=== PATIENT | female | born 1985 | race Caucasian/White ===

== ENCOUNTER → 2018-06-14 | Outpatient (CLI) | payer OTHER ==
--- NOTE | 2018-06-14 23:27 | RAD ---
Examination: Ultrasound pelvis HISTORY: History of left lower pelvic pain COMPARISON: None available. FINDINGS: The uterus measures 7.2 x 5.2 x 3.0 cm. Small amount of simple fluid identified in the cul-de-sac. The right ovary measures 2.1 x 2.0 x 1.9 cm. Left ovary measures 2.7 x 1.7 x 1.6 cm. Blood flow identified in the right and left ovaries. Examination is limited due to patient body habitus. The endometrium measures 8.8 mm in thickness. Few nabothian cysts identified in the cervix. IMPRESSION: Unremarkable visualized exam however examination is limited due to patient body habitus. Electronically signed by: Sumeet Siu MD (06/14/2018 3:21 PM) [place] [id number]
== END | disposition home or self-care (01) ==
LOC: US 13:59
PROVIDERS: ATTEND Nurse Practitioner Family
DX: N88.8 Other specified noninflammatory disorders of cervix uteri (principal); E28.2 Polycystic ovarian syndrome; N93.8 Other specified abnormal uterine and vaginal bleeding
CPT/HCPCS: 76830; 76856

== ENCOUNTER 2019-04-13 13:37 | Emergency (ER) | payer OTHER ==
[~2019-04-13] VITALS: Ht 160 cm; Wt 139.2 kg
--- NOTE | 2019-04-13 14:11 | PHYS DOC ---
Past History Past Medical History: Depression, IBS Past Surgical History: , Hysterectomy Smoking: Quit Greater Than 1 Year Alcohol Use: None Drug Use: None Adult General Chief Complaint Chief Complaint: MULTIPLE COMPLAINTS [facility] Patient is a 33-year-old female who presents to the emergency department for evaluation. She states that overnight she just began not feeling well, and she states that she was off balance yesterday, and dizzy. She denies any injuries. She did have "a migraine" earlier in the day, but denies currently having a headache. She did not have any vision changes or speech difficulties. She reports feeling a tightness in a tingling sensation in her left arm throughout the day since awakening this morning, and states her brother, who is an EMT, checked her blood pressure this morning and was 160 systolic. The patient denies having any chest pain or shortness of breath, or focal weakness. She has not had any nausea, vomiting, or diarrhea. There are no alleviating or exacerbating factors to her symptoms. She reports feeling a pulsatile sound in her ear, as if she could hear her heartbeat. Review of Systems Review of Systems Constitutional: Denies fever or chills [] Eyes: Denies change in visual acuity, redness, or eye pain [] HENT: Denies nasal congestion or sore throat [] Respiratory: Denies cough or shortness of breath [] Cardiovascular: No additional information not addressed in HPI [] GI: Denies abdominal pain, nausea, vomiting, bloody stools or diarrhea [] : Denies dysuria or hematuria [] Musculoskeletal: Denies back pain or joint pain [] Integument: Denies rash or skin lesions [] Neurologic: No additional information not addressed in HPI [] Endocrine: Denies polyuria or polydipsia [] All other systems were reviewed and found to be within normal limits, except as documented in this note. Allergies Allergies Allergies Coded Allergies Type Severity Reaction Last Updated Verified doxycycline Allergy Unknown Swelling 04/13/19 Yes Physical Exam Physical Exam PHYSICAL EXAM: CONSTITUTIONAL: Well developed, well nourished HEAD: normocephalic, atraumatic EENT: PERRL, EOMI. Conjunctivae normal color, sclerae non-icteric; moist mucous membranes. NECK: Supple, non-tender; no meningismus. There are no carotid bruits. LUNGS: Lungs CTA, breathing even and unlabored. Normal air movement. HEART: Regular rate and rhythm, no murmur CHEST: No deformity; non-tender ABDOMEN: The abdomen is soft, and non-tender, no masses or bruits. EXTREM: Normal ROM; no deformity, no calf tenderness. Normal pulses palpable in all extremities. There is no pedal edema. SKIN: No rash; no diaphoresis NEURO: Alert; normal speech and cognition; CN's grossly intact; strength grossly intact without focal deficit. Sensation is grossly intact. [id number] and heel maria testing is normal. Romberg test is normal. Visual uriostegui are intact by confrontation. NIH stroke scale score is 0. BACK: No CVA TTP. Current Patient Data Vital Signs Vital Signs Date Time Temp Pulse Resp B/P (MAP) Pulse Ox O2 Delivery O2 Flow Rate FiO2 04/13/19 13:40 98.5 99 24 100 Room Air Lab Results Laboratory Tests Test 04/13/19 14:05 White Blood Count 10.0 x10^3/uL Red Blood Count 4.83 x10^6/uL Hemoglobin 13.7 g/dL Hematocrit 41.3 % Mean Corpuscular Volume 86 fL Mean Corpuscular Hemoglobin 28 pg Mean Corpuscular Hemoglobin Concent 33 g/dL Red Cell Distribution Width 13.5 % Platelet Count 294 x10^3/uL Neutrophils (%) (Auto) 66 % Lymphocytes (%) (Auto) 26 % Monocytes (%) (Auto) 7 % Eosinophils (%) (Auto) 1 % Basophils (%) (Auto) 1 % Neutrophils # (Auto) 6.6 x10^3uL Lymphocytes # (Auto) 2.6 x10^3/uL Monocytes # (Auto) 0.7 x10^3/uL Eosinophils # (Auto) 0.1 x10^3/uL Basophils # (Auto) 0.1 x10^3/uL Prothrombin Time < 9.3 SEC Prothromb Time International Ratio 0.9 Activated Partial Thromboplast Time 28 SEC Sodium Level 143 mmol/L Potassium Level 3.8 mmol/L Chloride Level 109 mmol/L Carbon Dioxide Level 24 mmol/L Anion Gap 10 Blood Urea Nitrogen 5 mg/dL Creatinine 0.6 mg/dL Estimated GFR (Cockcroft-Gault) 115.9 BUN/Creatinine Ratio 8 Glucose Level 96 mg/dL Calcium Level 8.5 mg/dL Magnesium Level 2.0 mg/dL Total Bilirubin 0.1 mg/dL Aspartate Amino Transf (AST/SGOT) 14 U/L Alanine Aminotransferase (ALT/SGPT) 26 U/L Alkaline Phosphatase 105 U/L [id number]-Aje-C-Type Natriuretic Peptide 35 pg/mL Total Protein 7.0 g/dL Albumin 3.2 g/dL Albumin/Globulin Ratio 0.8 Current Medications Medications (Trade) Dose Ordered Sig/Joby Route PRN Reason Start Time Stop Time Status Last Admin Dose Admin Iohexol (Omnipaque 350 Mg/ml) 100 ml 1X ONCE IV 04/13/19 14:15 04/13/19 14:17 DC 04/13/19 14:36 EKG EKG Normal sinus rhythm with a normal rate, normal axis, normal intervals, there are no acute ischemic ST/T changes.[] Radiology/Procedures Radiology/Procedures PROCEDURE: PORTABLE CHEST 1V PORTABLE CHEST 1V Clinical indications: Dizziness. COMPARISON: None available. Findings: No acute lung infiltrate or pleural effusion or pulmonary edema or lung mass or pneumothorax is seen. The heart size, pulmonary vasculature, mediastinum and both tr are unremarkable. Impression: No acute radiographic abnormality is seen. [] PROCEDURE: CT HEAD WO CONTRAST Axial CT images of the head were obtained without IV contrast. Comparison: None. Indication: Dizziness, off balance and left-sided paresthesias. Findings: No mass effect or hemorrhage is seen. The ventricles are not enlarged or effaced. No midline shift is noted. There is no intra or extra axial fluid collection. No bony or soft tissue abnormality is seen. The visualized paranasal sinuses are clear. Impression: 1. No acute intracranial process seen on non- contrast head CT. PROCEDURE: CT ANGIOGRAPHY HEAD AND NECK Head and neck CTA with and without contrast and 3-D reconstruction: Clinical indications: Left-sided paresthesias. Imbalance. Technique: An appropriate noncontrast axial localizer was identified in the neck and used as the region of interest during contrast injection. Following IV infusion of 100 cc of Omnipaque 350, helical CT scanning of the neck and head was performed. Axial and coronal and sagittal 2-D MIP reconstructions were generated and reviewed on a computer monitor. Using a MIP algorithm, a 3-D reconstructed angiogram was generated and reviewed on a computer monitor. PQRS compliance Statement One or more of the following individualized dose reduction techniques were utilized for this study: 1. Automated exposure control 2. Adjustment of the mA and/or kV according to patient size 3. Use of iterative reconstruction technique The measurements were performed using the NASCET criteria. Neck CTA Findings: No occlusive disease is seen. No significant stenosis is evident. The vertebral arteries are codominant in size. No soft tissue mass or enlarged cervical lymphadenopathy is seen. Head CTA Findings: No aneurysm is seen involving the [place] of Small. No occlusive disease or significant stenosis is seen. No thromboembolism is identified. No arteriovenous malformation is evident. No intracranial contrast enhancing lesion is seen. The dural venous sinuses are patent. Impression: No significant abnormality. Course & Med Decision Making Course & Med Decision Making Pertinent Labs and Imaging studies reviewed. (See chart for details) []3:30 PM: The patient's condition remains stable. I discussed test results with the patient. I discussed the inability to definitively rule out a stroke without an MRI, although clinical suspicion is low, and I discussed transfer to another facility that would have MRI capability for further observation, but the patient declined, expressing understanding of the limitation of the evaluation she received in this emergency Department. She would prefer to follow up as an outpatient, I discussed expectant management, the need for close PCP follow-up for further blood pressure evaluation, and return precautions in detail. Patient was not noted to have significant blood pressure abnormalities during her stay in the ER and I discussed further outpatient evaluation of her blood pressure with her PCP. Dragon Disclaimer Dragon Disclaimer This electronic medical record was generated, in whole or in part, using a voice recognition dictation system. Departure Departure: Impression: Primary Impression: Dizziness Disposition: 01 HOME, SELF-CARE Condition: STABLE Referrals: ALBAN OVALLE (PCP) Patient Instructions: Dizziness, Hypertension, Paresthesia RICK MCPHERSON MD Apr 13, 2019 14:11
[2019-04-13] MEDS ORDERED: IOHEXOL 350 MG/ML 100 ML VIAL. IV ONE (14:15)
[2019-04-13 14:21] LABS: BASO # 0.1 x10^3/uL (0.0-0.2); BASO % 1 % (0-3); EOS # 0.1 x10^3/uL (0.0-0.7); EOS % 1 % (0-3); HEMATOCRIT 41.3 % (36.0-47.0); HEMOGLOBIN 13.7 g/dL (12.0-15.5); LYMPH # 2.6 x10^3/uL (1.0-4.8); LYMPH % 26 % (24-48); MEAN CORPUSCULAR HEMOGLOBIN 28 pg (25-35); MEAN CORPUSCULAR HGB CONC 33 g/dL (31-37); MEAN CORPUSCULAR VOLUME 86 fL (79-100); MONO # 0.7 x10^3/uL (0.0-1.1); MONO % 7 % (0-9); NEUT # 6.6 x10^3uL (1.8-7.7); NEUT % 66 % (31-73); PLATELET COUNT 294 x10^3/uL (140-400); RED BLOOD COUNT 4.83 x10^6/uL (3.50-5.40); RED CELL DISTRIBUTION WIDTH 13.5 % (11.5-14.5)
[2019-04-13 14:42] LABS: ALBUMIN 3.2 g/dL (3.4-5.0); ALBUMIN/GLOBULIN RATIO 0.8 (1.0-1.7); CALCIUM 8.5 mg/dL (8.5-10.1); CREATININE 0.6 mg/dL (0.6-1.0); GFR 115.9; POTASSIUM 3.8 mmol/L (3.5-5.1); TOTAL BILIRUBIN 0.1 mg/dL (0.2-1.0)
--- NOTE | 2019-04-13 14:45 | RAD ---
Axial CT images of the head were obtained without IV contrast. Comparison: None. Indication: Dizziness, off balance and left-sided paresthesias. Findings: No mass effect or hemorrhage is seen. The ventricles are not enlarged or effaced. No midline shift is noted. There is no intra or extra axial fluid collection. No bony or soft tissue abnormality is seen. The visualized paranasal sinuses are clear. Impression: 1. No acute intracranial process seen on non- contrast head CT. Exposure: One or more of the following individualized dose reduction techniques were utilized for this examination: 1. Automated exposure control 2. Adjustment of the mA and/or kV according to patient size 3. Use of iterative reconstruction technique Electronically signed by: Terry Wang MD (04/13/2019 2:42 PM) [id number]
--- NOTE | 2019-04-13 14:48 | RAD ---
PORTABLE CHEST 1V Clinical indications: Dizziness. COMPARISON: None available. Findings: No acute lung infiltrate or pleural effusion or pulmonary edema or lung mass or pneumothorax is seen. The heart size, pulmonary vasculature, mediastinum and both tr are unremarkable. Impression: No acute radiographic abnormality is seen. Electronically signed by: Peewee Molina MD (04/13/2019 2:45 PM) [facility]
--- NOTE | 2019-04-13 15:18 | RAD ---
Head and neck CTA with and without contrast and 3-D reconstruction: Clinical indications: Left-sided paresthesias. Imbalance. Technique: An appropriate noncontrast axial localizer was identified in the neck and used as the region of interest during contrast injection. Following IV infusion of 100 cc of Omnipaque 350, helical CT scanning of the neck and head was performed. Axial and coronal and sagittal 2-D MIP reconstructions were generated and reviewed on a computer monitor. Using a MIP algorithm, a 3-D reconstructed angiogram was generated and reviewed on a computer monitor. PQRS compliance Statement One or more of the following individualized dose reduction techniques were utilized for this study: 1. Automated exposure control 2. Adjustment of the mA and/or kV according to patient size 3. Use of iterative reconstruction technique The measurements were performed using the NASCET criteria. Neck CTA Findings: No occlusive disease is seen. No significant stenosis is evident. The vertebral arteries are codominant in size. No soft tissue mass or enlarged cervical lymphadenopathy is seen. Head CTA Findings: No aneurysm is seen involving the lummi of Small. No occlusive disease or significant stenosis is seen. No thromboembolism is identified. No arteriovenous malformation is evident. No intracranial contrast enhancing lesion is seen. The dural venous sinuses are patent. Impression: No significant abnormality. Electronically signed by: Peewee Molina MD (04/13/2019 3:16 PM) [facility]
[2019-04-13 15:40] VITALS: BP 120/65
== END 2019-04-13 15:46 | disposition home or self-care (01) ==
LOC: ER 13:37
DX: R42 Dizziness and giddiness (principal); R20.2 Paresthesia of skin; F32.9 Major depressive disorder, single episode, unspecified; K58.9 Irritable bowel syndrome, unspecified; G43.909 Migraine, unspecified, not intractable, without status migrainosus; Z87.891 Personal history of nicotine dependence; Z88.1 Allergy status to other antibiotic agents
CPT/HCPCS: 36415; 70450; 70496; 70498; 71045; 80053; 83735; 83880; 85025; 85610; 85730; 99285; Q9967

== ENCOUNTER 2019-08-24 11:05 | Emergency (ER) | payer OTHER ==
[~2019-08-24] VITALS: Ht 160 cm; Wt 139.2 kg
[2019-08-24 11:14] VITALS: BP 124/64
--- NOTE | 2019-08-24 11:53 | RAD ---
EXAM: Chest, single view. HISTORY: Shortness of breath. Cough. COMPARISON: 04/13/2019 FINDINGS: A frontal view of the chest is obtained. There is no infiltrate, pleural effusion or pneumothorax. The heart is normal in size. IMPRESSION: No acute pulmonary finding. Electronically signed by: Janette Steel MD (08/24/2019 11:50 AM) [facility]
[2019-08-24 12:04] LABS: BASO % 0 % (0-3); EOS # 0.1 x10^3/uL (0.0-0.7); EOS % 1 % (0-3); HEMATOCRIT 43.2 % (36.0-47.0); HEMOGLOBIN 14.5 g/dL (12.0-15.5); LYMPH # 1.8 x10^3/uL (1.0-4.8); LYMPH % 24 % (24-48); MEAN CORPUSCULAR HEMOGLOBIN 28 pg (25-35); MEAN CORPUSCULAR HGB CONC 34 g/dL (31-37); MEAN CORPUSCULAR VOLUME 85 fL (79-100); MONO # 0.4 x10^3/uL (0.0-1.1); MONO % 6 % (0-9); NEUT # 5.2 x10^3uL (1.8-7.7); NEUT % 69 % (31-73); PLATELET COUNT 330 x10^3/uL (140-400); RED BLOOD COUNT 5.11 x10^6/uL (3.50-5.40); RED CELL DISTRIBUTION WIDTH 14.1 % (11.5-14.5); WHITE BLOOD COUNT 7.6 x10^3/uL (4.0-11.0)
[2019-08-24 12:09] LABS: CALCIUM 9.1 mg/dL (8.5-10.1); CREATININE 0.7 mg/dL (0.6-1.0); POTASSIUM 3.9 mmol/L (3.5-5.1)
[2019-08-24 12:16] LABS: ALBUMIN 3.4 g/dL (3.4-5.0); ALBUMIN/GLOBULIN RATIO 0.9 (1.0-1.7); C REACTIVE PROTEIN 7.9 mg/L (0-3.3); TOTAL BILIRUBIN 0.2 mg/dL (0.2-1.0); TOTAL PROTEIN 7.2 g/dL (6.4-8.2)
[2019-08-24] MEDS ORDERED: GUAI120L35 PO (12:38)
[2019-08-24] MEDS ORDERED: BENZ100C PO (12:38)
--- NOTE | 2019-08-24 12:39 | PHYS DOC ---
Past History Past Medical History: Depression, IBS Past Surgical History: , Hysterectomy Smoking: Quit Greater Than 1 Year Alcohol Use: None Drug Use: None Adult General Chief Complaint Chief Complaint: COUGH HPI HPI Patient is a 33 year old female who presents with cough, body aches, headache that started yesterday. These have progressively gotten worse over time. 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 She states that she is developed some shortness of breath due to coughing over the last few hours. She called the health department who sent her here for possible coronavirus. She denies any other medical problems. She continues to be able to move around her home without significant shortness of breath. Review of Systems Review of Systems General: Denies fever, chills, sweats.reports fatigue Eyes: Denies drainage, blurred vision HENT: Denies rhinorrhea, sore throat Respiratory: Reports cough, shortness of breath, wheezing Cardiac: Denies edema, palpitations, chest pain GI: Denies abdominal pain, N/V MSK: Denies back pain, neck pain Skin: Denies rash, jaundice Neuro: Denies dizziness reports headache Psychiatric: Denies SI/HI All other systems were reviewed and found to be within normal limits, except as documented in this note. Allergies Allergies Allergies Coded Allergies Type Severity Reaction Last Updated Verified doxycycline Allergy Unknown Swelling 04/13/19 Yes Physical Exam Physical Exam Constitutional: Well developed, well nourished, Cooperative, NAD, ill appearing, coughing HEENT: Normocephalic, atraumatic, oropharynx moist, EOMI, PERRL, no drainage from eyes, normal conjunctiva Neck: Supple, normal range of motion, no stridor Cardiovascular: RRR, 2+ radial pulses bilaterally, no edema Respiratory: CTA bilaterally, no respiratory distress, no wheezing/crackles, decreased breath sounds bilaterally Abdomen: Soft, nontender, nondistended, no masses Skin: Warm, dry, intact Extremities: No obvious deformities Neurologic: Alert and Oriented x3, motor and sensory function grossly normal, no focal deficits Psychologic: Normal affect, normal judgment, normal mood. No SI/HI Current Patient Data Vital Signs Vital Signs Date Time Temp Pulse Resp B/P (MAP) Pulse Ox O2 Delivery O2 Flow Rate FiO2 08/24/19 11:14 98.3 99 22 124/64 (84) 98 Room Air Lab Results Laboratory Tests Test 08/24/19 11:35 White Blood Count 7.6 x10^3/uL (4.0-11.0) Red Blood Count 5.11 x10^6/uL (3.50-5.40) Hemoglobin 14.5 g/dL (12.0-15.5) Hematocrit 43.2 % (36.0-47.0) Mean Corpuscular Volume 85 fL (79-100) Mean Corpuscular Hemoglobin 28 pg (25-35) Mean Corpuscular Hemoglobin Concent 34 g/dL (31-37) Red Cell Distribution Width 14.1 % (11.5-14.5) Platelet Count 330 x10^3/uL (140-400) Neutrophils (%) (Auto) 69 % (31-73) Lymphocytes (%) (Auto) 24 % (24-48) Monocytes (%) (Auto) 6 % (0-9) Eosinophils (%) (Auto) 1 % (0-3) Basophils (%) (Auto) 0 % (0-3) Neutrophils # (Auto) 5.2 x10^3uL (1.8-7.7) Lymphocytes # (Auto) 1.8 x10^3/uL (1.0-4.8) Monocytes # (Auto) 0.4 x10^3/uL (0.0-1.1) Eosinophils # (Auto) 0.1 x10^3/uL (0.0-0.7) Basophils # (Auto) 0.0 x10^3/uL (0.0-0.2) Sodium Level 141 mmol/L (136-145) Potassium Level 3.9 mmol/L (3.5-5.1) Chloride Level 108 mmol/L (98-107) H Carbon Dioxide Level 23 mmol/L (21-32) Anion Gap 10 (6-14) Blood Urea Nitrogen 8 mg/dL (7-20) Creatinine 0.7 mg/dL (0.6-1.0) Estimated GFR (Cockcroft-Gault) 97.0 BUN/Creatinine Ratio 11 (6-20) Glucose Level 98 mg/dL (70-99) Calcium Level 9.1 mg/dL (8.5-10.1) Total Bilirubin 0.2 mg/dL (0.2-1.0) Aspartate Amino Transferase (AST) 13 U/L (15-37) L Alanine Aminotransferase (ALT) 18 U/L (14-59) Alkaline Phosphatase 105 U/L (46-116) Lactate Dehydrogenase 125 U/L (81-234) Creatine Kinase 44 U/L (26-192) Troponin I Quantitative < 0.017 ng/mL (0-0.055) C-Reactive Protein 7.9 mg/L (0-3.3) H Total Protein 7.2 g/dL (6.4-8.2) Albumin 3.4 g/dL (3.4-5.0) Albumin/Globulin Ratio 0.9 (1.0-1.7) L EKG EKG [] Radiology/Procedures Radiology/Procedures Chest x-ray normal [] Course & Med Decision Making Course & Med Decision Making Pertinent Labs and Imaging studies reviewed. (See chart for details) Patient is a 33-year-old female who presents to the emergency room with cough, body aches, fever. At this time there is concern for the novel coronavirus 19. Risk stratifying work-up was ordered including chest x-ray, d-dimer, CPK, CRP, LDH, troponin, ferritin, CBC, CMP. Due to concern of COVID-19 I have discussed the importance of quarantining with the patient. I have discussed with them that they should avoid grocery stores, gas stations, pharmacies, work, friends/family's homes. I discussed with him that it is important that they do not expose themselves to anyone else for the next 14 days. Chest x-ray does not show infiltrates at this time and patient will not be treated with empiric antibiotics. I have discussed with the patient the course of the illness and we have discussed strict return precautions. At this time patient does not need admission as they are stable, however it is possible that they may get worse over the next few days and we have discussed the importance of coming back if they develop severe shortness of breath or any other symptoms that they are co ncerned about. Patient's test results and vitals while in the ED were fully reviewed and discussed with the patient. Patient is stable and at this time does not need admission to the hospital. We have discussed strict return precautions and the importance of following up with their Primary Care Physician. Patient stated understanding and was given an opportunity to ask any questions. Charmaine Disclaimer Dragon Disclaimer This electronic medical record was generated, in whole or in part, using a voice recognition dictation system. Departure Departure: Impression: Primary Impression: 2019 novel coronavirus disease (COVID-19) Disposition: HOME, SELF-CARE Condition: STABLE Referrals: ALBAN OVALLE (PCP) Scripts Guaifenesin/Codeine Phosphate (Codeine-Guaifen 10-100 mg/5 ml) 120 Ml Liquid 5 ML PO PRN Q6HRS PRN for cough and congestion MDD 20 Milliliter(s) for 6 Days, #120 ML 0 Refills Prov: VERA CODY MD 08/24/19 Benzonatate (TESSALON PERLE) 100 Mg Capsule 1 CAP PO TID PRN for COUGH, #21 CAP Prov: VERA CODY MD 08/24/19 VERA CODY MD Aug 24, 2019 12:39
== END 2019-08-24 13:00 | disposition home or self-care (01) ==
LOC: ER 11:05
DX: U07.1 COVID-19 (principal); R06.02 Shortness of breath; K58.9 Irritable bowel syndrome, unspecified; Z87.891 Personal history of nicotine dependence; Z88.1 Allergy status to other antibiotic agents
CPT/HCPCS: 36415; 71045; 80053; 82550; 82728; 83615; 84484; 85025; 85379; 85610; 85730; 86140; 99284

== ENCOUNTER 2020-07-06 19:13 | Emergency (ER) | payer OTHER ==
[~2020-07-06] VITALS: Ht 160 cm; Wt 155.3 kg
[~2020-07-06 19:13] MED LIST: BENZ100C PO; GUAI120L35 PO
[2020-07-06 19:41] VITALS: BP 154/113
--- NOTE | 2020-07-06 19:45 | PHYS DOC ---
Past History Past Medical History: Depression, Endometriosis, IBS, Ovarian Cyst Past Surgical History: , Hysterectomy Smoking: Quit Greater Than 1 Year Alcohol Use: None Drug Use: None General Adult EDM: Chief Complaint: ABDOMINAL PAIN HPI: HPI: ".. I came in because having a lot of abdomen discomfort.. just not feeling right since about 0900 this morning.."..I usually follow with Dr. Shanta Ovalle. but I was hurting so bad.. I decided to come.. in... " Patient is a 34 year old FEMALE who presents with above hx and complaints generalized abdomen pain. Patient denies any fever or chills. Patient denies any intake of bad food. No history of travel. No history of specific ill contacts. Has had previous abdomen surgeries hysterectomy, C-sections x2. Treatment endometriosis, ovarian cyst. Last colonoscopy was normal 2 years ago. Patient denies any trauma. Review of Systems: Review of Systems: Constitutional: Denies fever or chills Eyes: Denies change in visual acuity HENT: Denies nasal congestion or sore throat Respiratory: Denies cough or shortness of breath Cardiovascular: Denies chest pain or edema GI: Complains of generalized abdominal pain, nausea,. Denies vomiting, bloody stools or diarrhea : Denies dysuria Musculoskeletal: Denies back pain or joint pain Integument: Denies rash Neurologic: Denies headache, focal weakness or sensory changes Endocrine: Denies polyuria or polydipsia Lymphatic: Denies swollen glands Psychiatric: Denies depression or anxiety Family History: Family History: Noncontributory to presentation Current Medications: Current Meds: See nursing for home meds. Allergies: Allergies: Allergies Coded Allergies Type Severity Reaction Last Updated Verified doxycycline Allergy Unknown Swelling 04/13/19 Yes Physical Exam: PE: Constitutional: Moderate acute distress, non-toxic appearance. [] HENT: Normocephalic, atraumatic, bilateral external ears normal, oropharynx moist, no oral exudates, nose normal. [] Eyes: PERRLA, EOMI, conjunctiva normal, no discharge. [] Neck: Normal range of motion, no tenderness, supple, no stridor. [] Cardiovascular: Tachycardia heart rate regular rhythm, no murmur [] Lungs & Thorax: Bilateral breath sounds equal apex on auscultation [] Abdomen: Bowel sounds hyperactive, soft, generalized tenderness, no masses, no pulsatile masses. [] Some rebound to the right mid abdomen. Old surgery scars Skin: Warm, dry, no erythema, no rash. [] Back: No tenderness, some mild right flank CVA tenderness. [] Extremities: No tenderness, no cyanosis, no clubbing, ROM intact, no edema. No Trousseau sign. Neurologic: Alert and oriented X 3, normal motor function, normal sensory function, no focal deficits noted. [] Psychologic: Affect anxious., judgement normal, mood normal. [] EKG: EKG: My interpretation of EKG shows sinus tachycardia 112 bpm. No acute morphology other than tachycardia. [] Radiology/Procedures: Radiology/Procedures: [[place] [address] IMAGING REPORT Signed PATIENT: LENARD MONTANA ACCOUNT: [id number] : 1985 LOCATION: ER AGE: 34 SEX: F EXAM STATUS: REG ER ORD. PHYSICIAN: CARRIE DELATORRE MD REASON: RLQ pain, OMNI 300, 75ml & OMNI 240, 30ml PROCEDURE: CT ABD PELV W/ORAL&IV CONTRAST EXAM: CT ABDOMEN/PELVIS WITH CONTRAST. HISTORY: Right lower quadrant pain. TECHNIQUE: Computed tomography of the abdomen and pelvis was performed after the intravenous administration of iodinated contrast. One or more of the following individualized dose reduction techniques were utilized for this examination: 1. Automated exposure control. 2. Adjustment of the mA and/or kV according to patient size. 3. Use of iterative reconstruction technique. COMPARISON: None. FINDINGS: Lung windows through the visualized portions of the bases reveal no abnormality. Bone windows reveal no suspicious lesions. The gallbladder is surgically absent. The liver, spleen, pancreas, adrenal glands and kidneys are unremarkable. There are no pathologically enlarged lymph nodes. The uterus is surgically absent. There is no evidence of appendicitis. A small umbilical hernia contains only fat. There is no small bowel obstruction. IMPRESSION: 1. No cause for pain is identified. 2. Small umbilical hernia containing only fat. Electronically signed by: Moo Sotelo MD (07/06/2020 11:48 PM) [facility] DICTATED AND SIGNED BY: RYAN SOTELO MD DATE: 07/06/20 2067 CC: CARRIE DELATORRE MD; [facility] ~MTH0 0 ][address] [address] IMAGING REPORT Signed PATIENT: LENARD MONTANA ACCOUNT: [id number] : 1985 LOCATION: ER AGE: 34 SEX: F EXAM STATUS: REG ER ORD. PHYSICIAN: CARRIE DELATORRE MD REASON: pain PROCEDURE: ACUTE ABDOMEN SERIES PROCEDURE: XR ABDOMEN COMP ACUTE STUDY DATE: 07/06/2020 CLINICAL INDICATION / HISTORY: Reason: pain / Spl. Instructions: / History: . TECHNIQUE: Upright PA chest, supine and upright films of the abdomen were obtained. COMPARISON: No relevant comparisons currently available FINDINGS: AP view the chest reveals the lungs to be clear. Cardiac and mediastinal silhouette are unremarkable. No free air is identified below the diaphragms. Supine and upright views of the abdomen reveal no dilated loops of bowel or air-fluid levels. Surgical clips in the right upper quadrant abdomen are noted. No organomegaly is present. No destructive osseous lesions. IMPRESSION: No radiographic evidence for bowel obstruction. Electronically signed by: Minesh Ferrari MD (07/06/2020 9:08 PM) [facility] [place] DICTATED AND SIGNED BY: MINESH FERRARI MD DATE: 07/06/20 1506 CC: CARRIE DELATORRE MD; [facility] ~MTH0 0 Heart Score: HEART Score for Chest Pain: HEART Score for Chest Pain Response (Comments) Value History Slighlty/Non-Suspicious 0 ECG Normal 0 Age < 45 0 Risk Factors 1 or 2 Risk Factors 1 Troponin < Normal Limit 0 Total 1 Risk Factors: Risk Factors: DM, Current or recent (<one month) smoker, HTN, HLP, family history of CAD, obesity. Risk Scores: Score 0 - 3: 2.5% MACE over next 6 weeks - Discharge Home Score 4 - 6: 20.3% MACE over next 6 weeks - Admit for Clinical Observation Score 7 - 10: 72.7% MACE over next 6 weeks - Early Invasive Strategies Course & Med Decision Making: Course & Med Decision Making Pertinent Labs and Imaging studies reviewed. (See chart for details) Patient to stay on a clear fluid diet only for the next 2 days. No solids. No milk products. Must allow bowel rest. If no improvement of pain have reexam. Currently appears not to have any acute surgical pathology. Take Tylenol and ibuprofen for pain. For marked pain may take Vicoprofen but warned of possible constipation. Follow-up with primary care. Return if any concerns. Have reviewed your ED work-up. Impression: 1. Abdomen Pain 2. Mild leukocytosis 11.6 [] Dragon Disclaimer: Dragon Disclaimer: This electronic medical record was generated, in whole or in part, using a voice recognition dictation system. Departure Departure: Referrals: [facility] (PCP) Scripts Hydrocodone/Ibuprofen (HYDROCODONE-IBUPROFEN 7.5-200 ) 1 Each Tablet 1 TAB PO PRN Q6HRS PRN for PAIN, #30 TAB 0 Refills Prov: CARRIE DELATORRE MD 07/07/20 Charmaine Disclaimer This chart was dictated in whole or in part using Voice Recognition software in a busy, high-work load, and often noisy Emergency Department environment. It may contain unintended and wholly unrecognized errors or omissions. CARRIE DELATORRE MD Jul 06, 2020 19:45
[2020-07-06] MEDS ORDERED: IV RINGERS SOLUTION,LACTATED 1,000 ML IV SCH (20:00)
[2020-07-06] MEDS ORDERED: FAMOTIDINE 20 MG/2 ML VIAL IVP ONE (20:00)
[2020-07-06] MEDS ORDERED: ONDANSETRON PF 4 MG/2 ML VIAL. IVP ONE (20:00)
[2020-07-06] MEDS ORDERED: MORPHINE SULFATE 10 MG/ML SYRINGE. SQ ONE (20:00)
[2020-07-06 20:56] LABS: BASO # 0.1 x10^3/uL (0.0-0.2); BASO % 1 % (0-3); EOS # 0.1 x10^3/uL (0.0-0.7); EOS % 1 % (0-3); HEMATOCRIT 39.9 % (36.0-47.0); HEMOGLOBIN 13.2 g/dL (12.0-15.5); LYMPH # 2.1 x10^3/uL (1.0-4.8); LYMPH % 18 % (24-48); MEAN CORPUSCULAR HEMOGLOBIN 28 pg (25-35); MEAN CORPUSCULAR HGB CONC 33 g/dL (31-37); MEAN CORPUSCULAR VOLUME 84 fL (79-100); MONO # 0.8 x10^3/uL (0.0-1.1); MONO % 7 % (0-9); NEUT # 8.5 x10^3uL (1.8-7.7); NEUT % 73 % (31-73); PLATELET COUNT 314 x10^3/uL (140-400); RED BLOOD COUNT 4.77 x10^6/uL (3.50-5.40); RED CELL DISTRIBUTION WIDTH 13.7 % (11.5-14.5); WHITE BLOOD COUNT 11.6 x10^3/uL (4.0-11.0)
[2020-07-06 21:06] LABS: BILIRUBIN,URINE NEG (NEG); CLARITY,URINE CLEAR; COLOR,URINE STRAW; GLUCOSE,URINE NEG (NEG)
[2020-07-06 21:07] LABS: NITRITE,URINE NEG (NEG); UROBILINOGEN,URINE 0.2 mg/dL (0.2 mg/dL)
[2020-07-06 21:10] LABS: RBC,URINE RARE /HPF (0-2); WBC,URINE OCC /HPF (0-4)
[2020-07-06 21:11] LABS: BACTERIA,URINE FEW /HPF (0-FEW); SQUAMOUS EPITHELIAL CELL,UR FEW /LPF
--- NOTE | 2020-07-06 21:11 | RAD ---
PROCEDURE: XR ABDOMEN COMP ACUTE STUDY DATE: 07/06/2020 CLINICAL INDICATION / HISTORY: Reason: pain / Spl. Instructions: / History: . TECHNIQUE: Upright PA chest, supine and upright films of the abdomen were obtained. COMPARISON: No relevant comparisons currently available FINDINGS: AP view the chest reveals the lungs to be clear. Cardiac and mediastinal silhouette are u nremarkable. No free air is identified below the diaphragms. Supine and upright views of the abdome n reveal no dilated loops of bowel or air-fluid levels. Surgical clips in the right upper quadrant ab domen are noted. No organomegaly is present. No destructive osseous lesions. IMPRESSION: No radiographic evidence for bowel obstruction. Electronically signed by: Brayden Simons MD (07/06/2020 9:08 PM) [facility]
[2020-07-06 21:12] LABS: CALCIUM 9.1 mg/dL (8.5-10.1); CREATININE 0.7 mg/dL (0.6-1.0); GFR 96.4; POTASSIUM 3.8 mmol/L (3.5-5.1)
[2020-07-06 21:14] LABS: BARBITURATES NEG (NEG); BENZODIAZEPINES NEG (NEG); CANNABINOIDS NEG (NEG); COCAINE NEG (NEG); METHADONE NEG (NEG); OPIATES NEG (NEG); PHENCYCLIDINE NEG (NEG)
[2020-07-06 21:18] LABS: ALBUMIN 3.3 g/dL (3.4-5.0); AMPHETAMINE/METHAMPHETAMINE NEG (NEG); DIRECT BILIRUBIN 0.1 mg/dL (0.0-0.2); TOTAL BILIRUBIN 0.2 mg/dL (0.2-1.0); TOTAL PROTEIN 7.3 g/dL (6.4-8.2)
[2020-07-06] MEDS ORDERED: CONTRAST GIVEN. MC PRN (22:15)
[2020-07-06] MEDS ORDERED: KETOROLAC 30 MG/ML VIAL. IVP ONE (22:30)
[2020-07-06] MEDS ORDERED: IOHEXOL 240 MG/ML 50ML VIAL. PO ONE (22:30)
[2020-07-06] MEDS ORDERED: IOHEXOL 300 MG/ML 75 ML VIAL. IV ONE (22:30)
--- NOTE | 2020-07-06 23:51 | RAD ---
EXAM: CT ABDOMEN/PELVIS WITH CONTRAST. HISTORY: Right lower quadrant pain. TECHNIQUE: Computed tomography of the abdomen and pelvis was performed after the intravenous administ ration of iodinated contrast. One or more of the following individualized dose reduction techniques w ere utilized for this examination: 1. Automated exposure control. 2. Adjustment of the mA and/or kV according to patient size. 3. Use of iterative reconstruction technique. COMPARISON: None. FINDINGS: Lung windows through the visualized portions of the bases reveal no abnormality. Bone windo ws reveal no suspicious lesions. The gallbladder is surgically absent. The liver, spleen, pancreas, adrenal glands and kidneys are unr emarkable. There are no pathologically enlarged lymph nodes. The uterus is surgically absent. There is no eviden ce of appendicitis. A small umbilical hernia contains only fat. There is no small bowel obstruction. IMPRESSION: 1. No cause for pain is identified. 2. Small umbilical hernia containing only fat. Electronically signed by: Moo Sotelo MD (07/06/2020 11:48 PM) [facility]
[2020-07-07] MEDS ORDERED: HYDR-1179 PO (00:17)
[2020-07-07] MEDS ORDERED: MAGNESIUM HYDROXIDE 2,400 MG/30 ML ORAL.SUSP. PO ONE (01:00)
--- NOTE | 2020-07-07 02:26 | EKG ---
[address] [address] Test Date: 2020-07-06 Test Time: 20:21:08 Pat Name: LENARD MONTANA Department: Room: Gender: F Heel Turner: ABDIAZIZ : 1985 Requested By: CARRIE DELATORRE Order Number: [id number] Reading MD: Measurements Intervals [place] Rate: 112 P: 40 AR: 128 QRS: 53 QRSD: 78 T: 48 QT: 322 QTc: 441 Interpretive Statements SINUS TACHYCARDIA OTHERWISE NORMAL ECG RI6.02 No previous ECG available for comparison
== END 2020-07-07 00:35 | disposition home or self-care (01) ==
LOC: ER 19:13
DX: R10.84 Generalized abdominal pain (principal); D72.829 Elevated white blood cell count, unspecified; F32.9 Major depressive disorder, single episode, unspecified; K52.89 Other specified noninfective gastroenteritis and colitis; Z87.891 Personal history of nicotine dependence; Z98.890 Other specified postprocedural states; Z90.710 Acquired absence of both cervix and uterus; Z88.1 Allergy status to other antibiotic agents
CPT/HCPCS: 36415; 74022; 74177; 80048; 80076; 80307; 81001; 82150; 83690; 84484; 85025; 85610; 85730; 93005; 96361; 96372; 96374; 96375; 99285; J1885; J2270; J2405; J3490; J7120; Q9966; Q9967

== ENCOUNTER → 2020-11-28 | Outpatient (CLI) | payer OTHER ==
[~2020-11-28] MED LIST changes: +HYDR-1179 PO
--- NOTE | 2020-11-28 14:03 | RAD ---
EXAMINATION: CT THORAX WO (CT CHEST WITHOUT IV CONTRAST) CLINICAL HISTORY: LEFT ANTERIOR RIB FRACTURES Technique: Spiral CT acquisition of the chest from the thoracic inlet to the upper abdomen without co ntrast. CT Dose Reduction Employed: One or more of the following individualized dose reduction techniques wer e utilized for this examination: 1. Automated exposure control 2. Adjustment of the mA and/or kV ac cording to patient size 3. Use of iterative reconstruction technique. Comparison: Chest radiograph 08/24/2019 FINDINGS: Lung Parenchyma, Pleura, and Airways: No consolidation. No suspicious pulmonary nodule. No pleural ef fusion. Central airways patent. Lower Neck, Mediastinum, and Heart: Visualized thyroid gland within normal limits. No mediastinal, hi lar, or axillary lymphadenopathy. Thoracic aorta and main pulmonary artery normal in caliber. Normal heart size. No pericardial effusion. Bones and Soft Tissues: Essentially nondisplaced anterior left fifth rib fracture. Mild degenerative changes in the thoracic spine. Upper Abdomen: Bariatric postoperative changes. Cholecystectomy. Small area of focal parenchymal hypo attenuation in the liver along the falciform ligament, likely focal steatosis. IMPRESSION: Essentially nondisplaced anterior left fifth rib fracture. No evidence of acute cardiopulmonary abnormality. Electronically signed by: John Hyatt DO (11/28/2020 2:00 PM) [facility]
== END ==
LOC: CT 10:54
PROVIDERS: ATTEND Nurse Practitioner Adult Health
DX: S22.32XA Fracture of one rib, left side, initial encounter for closed fracture (principal); M47.814 Spondylosis without myelopathy or radiculopathy, thoracic region; X58.XXXA Exposure to other specified factors, initial encounter; Y93.89 Activity, other specified; Y92.89 Other specified places as the place of occurrence of the external cause; Y99.8 Other external cause status
CPT/HCPCS: 71250

== ENCOUNTER 2021-04-01 16:18 | Emergency (ER) | payer OTHER ==
[~2021-04-01] VITALS: Ht 160 cm; Wt 118.0 kg
--- NOTE | 2021-04-01 17:34 | EKG ---
[address] [address] Test Date: 2021-04-01 Test Time: 17:28:45 Pat Name: LENARD MONTANA Department: Room: Gender: F Web Development Intern: GEM : 1985 Requested By: CONNIE PIMENTEL Order Number: [id number] Reading MD: Measurements Intervals [place] Rate: 84 P: 40 KS: 126 QRS: 12 QRSD: 82 T: 30 QT: 358 QTc: 426 Interpretive Statements SINUS RHYTHM NORMAL ECG RI6.02 No previous ECG available for comparison
[2021-04-01 18:10] LABS: BASO % 0 % (0-3); EOS # 0.1 x10^3/uL (0.0-0.7); EOS % 1 % (0-3); HEMATOCRIT 42.2 % (36.0-47.0); LYMPH # 2.2 x10^3/uL (1.0-4.8); LYMPH % 19 % (24-48); MEAN CORPUSCULAR HEMOGLOBIN 29 pg (25-35); MEAN CORPUSCULAR HGB CONC 33 g/dL (31-37); MEAN CORPUSCULAR VOLUME 88 fL (79-100); MONO # 0.8 x10^3/uL (0.0-1.1); MONO % 7 % (0-9); NEUT # 8.4 x10^3uL (1.8-7.7); NEUT % 74 % (31-73); PLATELET COUNT 289 x10^3/uL (140-400); RED BLOOD COUNT 4.79 x10^6/uL (3.50-5.40); RED CELL DISTRIBUTION WIDTH 12.6 % (11.5-14.5); WHITE BLOOD COUNT 11.4 x10^3/uL (4.0-11.0)
[2021-04-01 18:11] LABS: CALCIUM 8.9 mg/dL (8.5-10.1); CREATININE 0.7 mg/dL (0.6-1.0); GFR 95.8; POTASSIUM 4.4 mmol/L (3.5-5.1)
[2021-04-01 18:17] LABS: ALBUMIN 3.8 g/dL (3.4-5.0); ALBUMIN/GLOBULIN RATIO 1.2 (1.0-1.7); TOTAL BILIRUBIN 0.2 mg/dL (0.2-1.0)
[2021-04-01 18:57] LABS: BACTERIA,URINE FEW /HPF (0-FEW); BILIRUBIN,URINE NEG (NEG); CLARITY,URINE CLEAR; COLOR,URINE YELLOW; GLUCOSE,URINE NEG (NEG); NITRITE,URINE NEG (NEG); RBC,URINE OCC /HPF (0-2); SQUAMOUS EPITHELIAL CELL,UR MOD /LPF; UROBILINOGEN,URINE 0.2 mg/dL (0.2 mg/dL); WBC,URINE OCC /HPF (0-4)
[2021-04-01] MEDS ORDERED: MECLIZINE 12.5 MG TABLET. PO ONE (19:15)
[2021-04-01 19:29] VITALS: BP 147/76
[2021-04-01] MEDS ORDERED: MECL-75 PO (20:05)
[2021-04-01] MEDS ORDERED: ONDA4TAB12 PO (20:05)
--- NOTE | 2021-04-01 20:06 | PHYS DOC ---
Past History Past Medical History: Depression, Endometriosis, IBS, Ovarian Cyst (CONNIE PIMENTEL) Past Surgical History: , Gastric Bypass, Hysterectomy Additional Past Surgical Histo: partial hysterectomy, right leg surgery (CONNIE PIMENTEL) Smoking: Quit Greater Than 1 Year Alcohol Use: None Drug Use: None (CONNIE PIMENTEL) General Adult EDM: Chief Complaint: DIZZY/LIGHT HEADED HPI: HPI: Patient is a 35 year old female who presents with 5 days of dizziness and weakness. Patient reports she had bariatric surgery in July of this year. She has had issues with iron and vitamin deficiencies since that time. She was placed on iron and B12 supplements, but is now requiring infusions. She states she was scheduled to have these done on Wednesday, however with the holiday, it was pushed to Wednesday. Patient visited her primary care provider today and had blood drawn. After the appointment, after she had gone to work, she states her symptoms got much worse. She denies head trauma, abdominal pain, NVD. (CONNIE PIMENTEL) Review of Systems: Review of Systems: Constitutional: Denies fever or chills Eyes: Denies change in visual acuity HENT: Denies nasal congestion or sore throat Respiratory: Denies cough or shortness of breath Cardiovascular: Denies chest pain or edema GI: See HPI : Denies dysuria or hematuria Musculoskeletal: Denies back pain or joint pain Integument: Denies rash or other skin lesions Neurologic: See HPI (CONNIE PIMENTEL) Current Medications: Current Meds: Current Medications Medications (Trade) Dose Ordered Sig/Joby Start Time Stop Time Status Last Admin Dose Admin Meclizine HCl (Antivert) 25 mg 1X ONCE 04/01/21 19:15 04/01/21 19:16 DC 04/01/21 19:15 25 MG (CONNIE PIMENTEL) Allergies: Allergies: Allergies Coded Allergies Type Severity Reaction Last Updated Verified doxycycline Allergy Unknown Swelling 04/13/19 Yes (CONNIE PIMENTEL) Physical Exam: PE: Constitutional: Patient is resting with her eyes closed in the dark exam room, obese, no acute distress, non-toxic appearance. HENT: Normocephalic, atraumatic, bilateral external ears normal, oropharynx moist, no oral exudates, nose normal. Eyes: PERRLA, EOMI, conjunctiva normal, no discharge. Cardiovascular: Heart rate regular rhythm, no murmur. Lungs & Thorax: Bilateral breath sounds clear to auscultation. Abdomen: Bowel sounds normal, soft, no tenderness, no masses, no pulsatile masses. Skin: Warm, dry, no erythema, no rash. Neurologic: Alert and oriented x4, normal motor function, normal sensory function, no focal deficits noted. (CONNIE PIMENTEL) Current Patient Data: Labs: Laboratory Tests Test 04/01/21 17:50 04/01/21 18:17 04/01/21 18:19 White Blood Count 11.4 x10^3/uL (4.0-11.0) H Red Blood Count 4.79 x10^6/uL (3.50-5.40) Hemoglobin 14.0 g/dL (12.0-15.5) Hematocrit 42.2 % (36.0-47.0) Mean Corpuscular Volume 88 fL (79-100) Mean Corpuscular Hemoglobin 29 pg (25-35) Mean Corpuscular Hemoglobin Concent 33 g/dL (31-37) Red Cell Distribution Width 12.6 % (11.5-14.5) Platelet Count 289 x10^3/uL (140-400) Neutrophils (%) (Auto) 74 % (31-73) H Lymphocytes (%) (Auto) 19 % (24-48) L Monocytes (%) (Auto) 7 % (0-9) Eosinophils (%) (Auto) 1 % (0-3) Basophils (%) (Auto) 0 % (0-3) Neutrophils # (Auto) 8.4 x10^3uL (1.8-7.7) H Lymphocytes # (Auto) 2.2 x10^3/uL (1.0-4.8) Monocytes # (Auto) 0.8 x10^3/uL (0.0-1.1) Eosinophils # (Auto) 0.1 x10^3/uL (0.0-0.7) Basophils # (Auto) 0.0 x10^3/uL (0.0-0.2) Sodium Level 142 mmol/L (136-145) Potassium Level 4.4 mmol/L (3.5-5.1) Chloride Level 106 mmol/L (98-107) Carbon Dioxide Level 25 mmol/L (21-32) Anion Gap 11 (6-14) Blood Urea Nitrogen 13 mg/dL (7-20) Creatinine 0.7 mg/dL (0.6-1.0) Estimated GFR (Cockcroft-Gault) 95.8 BUN/Creatinine Ratio 19 (6-20) Glucose Level 97 mg/dL (70-99) Calcium Level 8.9 mg/dL (8.5-10.1) Total Bilirubin 0.2 mg/dL (0.2-1.0) Aspartate Amino Transferase (AST) 19 U/L (15-37) Alanine Aminotransferase (ALT) 30 U/L (14-59) Alkaline Phosphatase 142 U/L (46-116) H Total Protein 7.0 g/dL (6.4-8.2) Albumin 3.8 g/dL (3.4-5.0) Albumin/Globulin Ratio 1.2 (1.0-1.7) Urine Collection Type Unknown Urine Color Yellow Urine Clarity Clear Urine pH 5.5 Urine Specific [place] 1.020 Urine Protein Neg (NEG-TRACE) Urine Glucose (UA) Neg mg/dL (NEG) Urine Ketones (Stick) 15 mg/dL (NEG) Urine Blood Neg (NEG) Urine Nitrite Neg (NEG) Urine Bilirubin Neg (NEG) Urine Urobilinogen Dipstick 0.2 mg/dL (0.2 mg/dL) Urine Leukocyte Esterase Neg (NEG) Urine RBC Occ /HPF (0-2) Urine WBC Occ /HPF (0-4) Urine Squamous Epithelial Cells Mod /LPF Urine Bacteria Few /HPF (0-FEW) POC Urine HCG, Qualitative hcg negative (Negative) Vital Signs: Vital Signs Date Time Temp Pulse Resp B/P (MAP) Pulse Ox O2 Delivery O2 Flow Rate FiO2 04/01/21 19:29 90 16 147/76 (99) 100 04/01/21 16:22 98.9 Room Air Orthostatic Laying 115/51, 78bpm Sitting 14/76, 79bpm Standing 139/82, 79bpm (CONNIE PIMENTEL) EKG: EKG: EKG Interpreted by Dr. Ovalle at 1730: Regular rate and rhythm 84 bpm with no ectopic beats. No concerning ST-T wave changes. Regular QR interval. (CONNIE PIMENTEL) Heart Score: C/O Chest Pain: No (CONNIE PIMENTEL) Course & Med Decision Making: Course & Med Decision Making Pertinent Labs and Imaging studies reviewed. (See chart for details) Patient work-up today will include lab work, EKG, urinalysis. Patient hemoglobin is 14.0, not anemic range. Patient provided with meclizine to aid with dizziness. On reevaluation after fluid administration and meclizine, patient appearance much improved. She is more alert and more talkative. She does now complain of nausea, which will be treated with Zofran ODT. Patient discharged home with meclizine and Zofran prescriptions. She is instructed to continue with any nutrient infusions recommended by her primary care provider. Patient instructed to return to the emergency department if she has any worsening symptoms or develops new ones. Patient and her at bed side understand and are agreeable to discharge plan. (CONNIE PIMENTEL) Dragon Disclaimer: Dragon Disclaimer: This electronic medical record was generated, in whole or in part, using a voice recognition dictation system. (CONNIE PIMENTEL) Departure Departure: Impression: Primary Impression: Weakness with dizziness Additional Impressions: History of non anemic vitamin B12 deficiency History of iron deficiency Disposition: HOME / SELF CARE / HOMELESS Condition: STABLE Referrals: [facility] OVALLE (PCP) Patient Instructions: Weakness, [id number] Scripts Meclizine Hcl (MECLIZINE HCL) 25 Mg Tablet 1 TAB PO PRN 1-2XD PRN for DIZZINESS, #30 TAB Prov: CONNIE PIMENTEL 04/01/21 Ondansetron (ONDANSETRON ODT) 4 Mg Tab.rapdis 1 TAB PO PRN Q6-8HRS for nausea, #16 TAB Prov: CONNIE PIMENTEL 04/01/21 Attending Signature Attending Signature I have reviewed the PA/WOMEN'S SOCCER COACH's note and plan of care. I was available for consultation as needed during the patient's visit in the emergency department. I agree with the clinical impression, plan, and disposition. (MARISSA OVALLE DO) CONNIE PIMENTEL Apr 01, 2021 20:06 MARISSA OVALLE DO Apr 01, 2021 22:12
[2021-04-01] MEDS ORDERED: ONDANSETRON ODT 4 MG TAB.RAPDIS ONE (20:11)
[2021-04-01] MEDS ORDERED: ONDANSETRON ODT 4 MG TAB.RAPDIS PO ONE (20:15)
== END 2021-04-01 20:10 | disposition home or self-care (01) ==
LOC: ER 16:18
DX: R53.1 Weakness (principal); R42 Dizziness and giddiness; F32.9 Major depressive disorder, single episode, unspecified; K58.9 Irritable bowel syndrome, unspecified; Z87.891 Personal history of nicotine dependence; Z98.84 Bariatric surgery status
CPT/HCPCS: 36415; 80053; 81001; 81025; 85025; 93005; 99284